=== PATIENT | female | born 1960 | race Caucasian/White ===

== ENCOUNTER 2021-11-21 04:44 | Outpatient (CLI) | payer OTHER, BC, SELFPAY | END 2021-11-21 04:45 | disposition home or self-care (01) | LOC: RT 04:44 | PROVIDERS: PCP Family Medicine; Visit Provider Pediatrics Pediatric Rheumatology | DX: Z02.71 Encounter for disability determination (principal); D86.9 Sarcoidosis, unspecified | CPT/HCPCS: 94618 ==